=== PATIENT | female | born 1990 | race Caucasian/White ===

== ENCOUNTER 2020-02-08 22:13 | Emergency (ER) | payer OTHER ==
[~2020-02-08] VITALS: Ht 162.6 cm; Wt 52.2 kg
--- NOTE | 2020-02-08 22:18 | NUR ---
ED Nurse Note: PT BROUGHT IN BY RA 62 FROM HOME C/O OD AFTER DRINKING WINE AND 10 TABS OF 1MG CLONAZEPAM (10 MG TOTAL). PT IS AAOX4, NAD, VSS. [facility] AT BEDSIDE. AMBULATORY.
[2020-02-08 22:20] VITALS: BP 127/68
--- NOTE | 2020-02-08 22:20 | NUR ---
ED Nurse Note: [employer] AT BEDSIDE. PER [employer], PT IS PLACED ON 5150 HOLD. ALL BELONGINGS REMOVED AND PLACED IN LOCKER x1, PLACED ON GOWN. Addendum: 02/08/20 at 2254 by [email or web address] ED Nurse Note: [employer] AT BEDSIDE. PER [employer], PT IS PLACED ON 5150 HOLD. PT WAS NOT UNDER POLICE CUSTODY. ALL BELONGINGS REMOVED AND PLACED IN LOCKER x1, PLACED ON GOWN.
--- NOTE | 2020-02-08 22:25 | NUR ---
ED Nurse Note: BLOOD AND URINE COLLECTED AND SENT TO LAB.
--- NOTE | 2020-02-08 22:38 | Emergency Room Report ---
History of Present Illness General Chief Complaint: Substance Abuse Source: Patient Present Illness HPI Patient is a 29-year-old female brought in by EMS after recent overdose on medications. Patient reports having a prior history of depression. She states that she had recently broken up with her girlfriend. Reportedly took approximately ten 1 mg Xanax pills approximately 3 hours prior to arrival. Also ingested some alcohol. Denies any other ingestions. Denies any other current complaints. Reports having prior history of depression and has been in the past followed by psychiatrist. She is not currently on any medications. She denies ever having been placed on a hold Allergies: Coded Allergies: No Known Allergies (Unverified , 02/08/20) Patient History Past Medical History: see triage record Last Menstrual Period: na Reviewed Nursing Documentation: PMH: Agreed; PSxH: Agreed Nursing Documentation-PMH Past Medical History: No Stated History Hx Cardiac Problems: No Hx Hypertension: No Hx Pacemaker: No Hx Asthma: No Hx COPD: No Hx Diabetes: No Hx Cancer: No Hx Gastrointestinal Problems: No Hx Dialysis: No History Of Psychiatric Problem: No Hx Neurological Problems: No Hx Cerebrovascular Accident: No Hx Seizures: No Review of Systems All Other Systems: negative except mentioned in HPI Physical Exam Vital Signs Date Time Temp Pulse Resp B/P (MAP) Pulse Ox O2 Delivery O2 Flow Rate FiO2 02/08/20 22:14 98.2 86 16 132/70 (90) 98 Room Air Sp02 EP Interpretation: reviewed, normal General Appearance: alert/responsive, no apparent distress, GCS 15, non-toxic Head: atraumatic Eyes: PERRL, lids + conjunctiva normal ENT: normal ENT inspection, hearing intact, no angioedema Neck: supple/symm/no masses, no meningismus Respiratory: effort normal, no wheezing, chest symmetrical Cardiovascular: regular rate, rhythm, no edema Cardiovascular #2: 2+ carotid (R), 2+ carotid (L), 2+ dorsalis pedis (R), 2+ dorsalis pedis (L) Gastrointestinal: non-tender, no mass, non-distended, no rebound/guarding, normal bowel sounds Musculoskeletal: gait & station normal, normal ROM, strength & tone normal, non -tender Neurologic: normal inspection, CN II-XII intact, oriented x3, sensory intact, normal speech Skin: no rash, well hydrated Lymphatic: normal inspection Medical Decision Making Diagnostic Impression: Primary Impression: Deliberate medication overdose Additional Impression: Depression ER Course Patient presented for overdose. Differential diagnosis include was not limited to polysubstance overdose, depression, suicide attempt among others. Because of complexity of patient's case laboratory tests were ordered. Patient was noted to be awake and alert on arrival with some slight slurring. Poison control is contacted for assistance with management. They recommended 4 hours of observation and supportive care. Patient will be placed on 5150 hold by [employer]. Patient was advised of 5150 and that she was not free to leave.Patient's blood alcohol was noted to be less than 100. Patient's urine drug screen did test negative for benzodiazepines which may be related recency of ingestion. Patient is medically cleared for psychiatric placement. Labs Test 02/08/20 22:40 White Blood Count 6.9 K/UL (4.8-10.8) Red Blood Count 5.00 M/UL (4.20-5.40) Hemoglobin 15.3 G/DL (12.0-16.0) Hematocrit 44.9 % (37.0-47.0) Mean Corpuscular Volume 90 FL (80-99) Mean Corpuscular Hemoglobin 30.5 PG (27.0-31.0) Mean Corpuscular Hemoglobin Concent 34.0 G/DL (32.0-36.0) Red Cell Distribution Width 11.6 % (11.6-14.8) Platelet Count 228 K/UL (150-450) Mean Platelet Volume 8.0 FL (6.5-10.1) Neutrophils (%) (Auto) 50.9 % (45.0-75.0) Lymphocytes (%) (Auto) 42.0 % (20.0-45.0) Monocytes (%) (Auto) 4.8 % (1.0-10.0) Eosinophils (%) (Auto) 1.4 % (0.0-3.0) Basophils (%) (Auto) 1.0 % (0.0-2.0) Urine Color Pale yellow Urine Appearance Clear Urine pH 6.5 (4.5-8.0) Urine Specific [place] 1.010 (1.005-1.035) Urine Protein Negative (NEGATIVE) Urine Glucose (UA) Negative (NEGATIVE) Urine Ketones 1+ (NEGATIVE) Urine Blood Negative (NEGATIVE) Urine Nitrite Negative (NEGATIVE) Urine Bilirubin Negative (NEGATIVE) Urine Urobilinogen Normal MG/DL (0.0-1.0) Urine Leukocyte Esterase Negative (NEGATIVE) Urine HCG, Qualitative Negative (NEGATIVE) Sodium Level 140 MMOL/L (136-145) Potassium Level 4.2 MMOL/L (3.5-5.1) Chloride Level 105 MMOL/L (98-107) Carbon Dioxide Level 27 MMOL/L (21-32) Anion Gap 8 mmol/L (5-15) Blood Urea Nitrogen 13 mg/dL (7-18) Creatinine 0.7 MG/DL (0.55-1.30) Estimat Glomerular Filtration Rate > 60 mL/min (>60) Glucose Level 80 MG/DL (74-106) Calcium Level 9.0 MG/DL (8.5-10.1) Total Bilirubin 0.4 MG/DL (0.2-1.0) Aspartate Amino Transf (AST/SGOT) 19 U/L (15-37) Alanine Aminotransferase (ALT/SGPT) 18 U/L (12-78) Alkaline Phosphatase 47 U/L (46-116) Total Protein 7.7 G/DL (6.4-8.2) Albumin 4.4 G/DL (3.4-5.0) Globulin 3.3 g/dL Albumin/Globulin Ratio 1.3 (1.0-2.7) Salicylates Level 0.7 ug/mL (2.8-20) Urine Opiates Screen Negative (NEGATIVE) Acetaminophen Level < 2 MCG/ML (10-30) Urine Barbiturates Screen Negative (NEGATIVE) Phencyclidine (PCP) Screen Negative (NEGATIVE) Urine Amphetamines Screen Negative (NEGATIVE) Urine Benzodiazepines Screen Negative (NEGATIVE) Urine Cocaine Screen Negative (NEGATIVE) Urine Marijuana (THC) Screen Negative (NEGATIVE) Serum Alcohol 89 mg/dL Last Vital Signs Date Time Temp Pulse Resp B/P (MAP) Pulse Ox O2 Delivery O2 Flow Rate FiO2 02/08/20 22:14 98.2 86 16 132/70 (90) 98 Room Air Status: improved Disposition: PSYCH HOSP/UNIT Condition: Stable Vinh Washington MD Feb 08, 2020 22:38
[2020-02-08 22:52] LABS: APPEARANCE,URINE CLEAR; BILIRUBIN, URINE NEGATIVE (NEGATIVE); COLOR,URINE PALE YELLOW; EOSINOPHILS % (AUTO) 1.4 % (0.0-3.0); GLUCOSE, URINE (UA) NEGATIVE (NEGATIVE); HEMATOCRIT 44.9 % (37.0-47.0); HEMOGLOBIN 15.3 G/DL (12.0-16.0); KETONES,URINE 1+ (NEGATIVE); LEUKOCYTE ESTERASE ,URINE NEGATIVE (NEGATIVE); MEAN CORPUSCULAR VOLUME 90 FL (80-99); MONOCYTES % (AUTO) 4.8 % (1.0-10.0); NEUTROPHILS % (AUTO) 50.9 % (45.0-75.0); NITRITE,URINE NEGATIVE (NEGATIVE); PH,URINE 6.5 (4.5-8.0); PLATELET COUNT 228 K/UL (150-450); PROTEIN,URINE NEGATIVE (NEGATIVE); RED CELL DISTRIBUTION WIDTH 11.6 % (11.6-14.8); UROBILINOGEN,URINE NORMAL MG/DL (0.0-1.0); WHITE BLOOD COUNT 6.9 K/UL (4.8-10.8)
[2020-02-08 23:00] VITALS: BP 122/71
--- NOTE | 2020-02-08 23:00 | NUR ---
ED Nurse Note: pt calm and sleeping. vss, nad. will continue to monitor patient
[2020-02-08 23:02] LABS: ANION GAP 8 mmol/L (5-15); BLOOD UREA NITROGEN 13 mg/dL (7-18); CARBON DIOXIDE 27 MMOL/L (21-32); CHLORIDE 105 MMOL/L (98-107); CREATININE 0.7 MG/DL (0.55-1.30); POTASSIUM 4.2 MMOL/L (3.5-5.1); SODIUM 140 MMOL/L (136-145)
[2020-02-08 23:09] LABS: ALANINE AMINOTRANSFERASE 18 U/L (12-78); ALBUMIN 4.4 G/DL (3.4-5.0); ALBUMIN/GLOBULIN RATIO 1.3 (1.0-2.7); ALKALINE PHOSPHATASE 47 U/L (46-116); ASPARTATE AMINO TRANSFERASE 19 U/L (15-37); BILIRUBIN,TOTAL 0.4 MG/DL (0.2-1.0)
[2020-02-09] VITALS: BP 109/77
--- NOTE | 2020-02-09 | NUR ---
ED Nurse Note: pt calm and sleeping. vss, nad. will continue to monitor patient
[2020-02-09 01:00] VITALS: BP 114/68
--- NOTE | 2020-02-09 01:00 | NUR ---
ED Nurse Note: pt calm and sleeping. vss, nad. will continue to monitor patient
[2020-02-09 02:00] VITALS: BP 118/63
--- NOTE | 2020-02-09 02:00 | NUR ---
ED Nurse Note: pt calm and sleeping. vss, nad. will continue to monitor patient
--- NOTE | 2020-02-09 02:15 | NUR ---
ED Nurse Note: pt is alert and awake.
[2020-02-09 04:31] VITALS: BP 109/73
--- NOTE | 2020-02-09 04:31 | NUR ---
ED Nurse Note: pt calm annd sleeping. vss, nad.
--- NOTE | 2020-02-09 06:17 | NUR ---
ED Nurse Note: PATIENT IS CALM AND SLEEPING. VSS, NAD. WILL CONTINUE TO MONITOR PATIENT.
--- NOTE | 2020-02-09 06:23 | NUR ---
ED Nurse Note: GAVE REPORT TO DHEERAJ MCDONNELL AT [facility] FOR [address], BED [id number].
[2020-02-09 06:26] VITALS: BP 113/66
--- NOTE | 2020-02-09 06:27 | NUR ---
ED Nurse Note: PT IS CALM AND RESTING. VSS, NAD.
[2020-02-09 07:54] VITALS: BP 117/70
--- NOTE | 2020-02-09 07:54 | NUR ---
ED Nurse Note: Pt taken by ambulance with all belongings. VSS. stable for transport and cleared by MD. Report given by shift manager nurse.
== END 2020-02-09 07:54 ==
LOC: EDBD 22:13 → EMR 22:26
DX: T42.4X2A Poisoning by benzodiazepines, intentional self-harm, initial encounter (principal); X58.XXXA Exposure to other specified factors, initial encounter; Y92.9 Unspecified place or not applicable; F32.9 Major depressive disorder, single episode, unspecified
CPT/HCPCS: 36415; 80053; 80307; 81003; 81025; 85025; 99285; G0480